=== PATIENT | female | born 1955 | race Caucasian/White ===

== ENCOUNTER 2019-03-17 22:13 | Inpatient (IN) | payer OTHER ==
[~2019-03-17] VITALS: Ht 162.6 cm; Wt 73.0 kg
[2019-03-17] MEDS ORDERED: VANCOMYCIN HCL125 MG PO (22:21)
[2019-03-17] MEDS ORDERED: THIAMINE HCL100 MG PO (22:22)
[2019-03-17] MEDS ORDERED: VITAMIN C100 MG PO (22:22)
[2019-03-17] MEDS ORDERED: CORGARD20 M1 PO (22:23)
[2019-03-17] MEDS ORDERED: LYRICA150 MG PO (22:23)
[2019-03-17] MEDS ORDERED: [UNRECOGNIZED DRUG - OTHER] PO (22:23)
[2019-03-17] MEDS ORDERED: PEPCID AC20 MG PO (22:24)
[2019-03-17] MEDS ORDERED: PROMACTA25 MG PO (22:24)
[2019-03-17] MEDS ORDERED: CALCIUM PO (22:25)
[2019-03-17] MEDS ORDERED: ZYLOPRIM300 MG PO (22:26)
[2019-03-17] MEDS ORDERED: BENZONATATE150 MG PO (22:26)
== END 2019-03-18 19:51 | disposition left against medical advice (07) | DRG 392 ==
LOC: ER 22:13 → SURH 03-18 09:34
PROVIDERS: ADMIT Student in an Organized Health Care Education/Training Program
PROC: BW21ZZZ Computerized Tomography (CT Scan) of Abdomen and Pelvis (ICD-10-PCS; principal; 2019-03-18)
DX: K52.89 Other specified noninfective gastroenteritis and colitis (principal); J90 Pleural effusion, not elsewhere classified; R18.8 Other ascites; I85.10 Secondary esophageal varices without bleeding; K57.30 Diverticulosis of large intestine without perforation or abscess without bleeding; R16.1 Splenomegaly, not elsewhere classified